=== PATIENT | female | born 1985 | race Caucasian/White ===

== ENCOUNTER 2021-07-18 12:16 | Outpatient (CLI) | payer OTHER, SELFPAY ==
[2021-07-23 08:45] LABS: HPV APTIMA, High Risk Negative (Negative)
== END 2021-07-18 23:59 | disposition short-term general hospital (02) ==
LOC: US 12:18
PROVIDERS: Visit Provider Obstetrics & Gynecology
DX: Z12.4 Encounter for screening for malignant neoplasm of cervix (principal)
CPT/HCPCS: 87624; 88175; G0145

== ENCOUNTER 2021-08-21 08:18 | Outpatient (CLI) | payer OTHER, SELFPAY ==
--- NOTE | 2021-08-21 08:21 | US_ITS ---
STUDY: ULTRASOUND OF THE FEMALE PELVIS - COMPLETE REASON FOR EXAM: Female, 35 years old. ADNX CYST ON PREV CT IN MAY - OUTSIDE FACILITY LMP: 07/27/2021. TECHNIQUE: Transabdominal and Transvaginal TECHNICAL QUALITY: Adequate. COMPARISON: None. FINDINGS: The uterus is anteverted and is in a midline position. The uterus measures 8.7 cm x 5.8 cm x 4.4 cm. Normal uterine cervix. The endometrium measures 1.1 mm in thickness, and is hyperechoic. There is no demonstrated endometrial mass. There is no demonstrated myometrial mass. I.U.D. - The patient does not have an I.U.D. The right ovary is visualized. The right ovary measures 2.8 cm x 2.4 cm x 2.8 cm. There is no right ovarian cyst or ovarian mass. There is no visualized right adnexal mass or complex lesion. There is normal arterial and normal venous vascularity. The left ovary is visualized. The left ovary measures 3.8 cm x 2.5 cm x 1.6 cm. There is no left ovarian cyst or ovarian mass. There is no visualized left adnexal mass or complex lesion. There is normal arterial and normal venous vascularity. There is no fluid in the cul-de-sac. The pre void volume of the bladder was 448 ml. US/Pelvic (Non ) IMPRESSION: Normal female pelvis. Electronically Signed: Rubén Gregory MD at 15:16 EST ,
--- NOTE | 2021-08-21 08:21 | US_ITS ---
STUDY: ULTRASOUND OF THE FEMALE PELVIS - COMPLETE REASON FOR EXAM: Female, 35 years old. ADNX CYST ON PREV CT IN MAY - OUTSIDE FACILITY LMP: 07/27/2021. TECHNIQUE: Transabdominal and Transvaginal TECHNICAL QUALITY: Adequate. COMPARISON: None. FINDINGS: The uterus is anteverted and is in a midline position. The uterus measures 8.7 cm x 5.8 cm x 4.4 cm. Normal uterine cervix. The endometrium measures 1.1 mm in thickness, and is hyperechoic. There is no demonstrated endometrial mass. There is no demonstrated myometrial mass. I.U.D. - The patient does not have an I.U.D. The right ovary is visualized. The right ovary measures 2.8 cm x 2.4 cm x 2.8 cm. There is no right ovarian cyst or ovarian mass. There is no visualized right adnexal mass or complex lesion. There is normal arterial and normal venous vascularity. The left ovary is visualized. The left ovary measures 3.8 cm x 2.5 cm x 1.6 cm. There is no left ovarian cyst or ovarian mass. There is no visualized left adnexal mass or complex lesion. There is normal arterial and normal venous vascularity. There is no fluid in the cul-de-sac. The pre void volume of the bladder was 448 ml. US/Transvaginal Non- IMPRESSION: Normal female pelvis. Electronically Signed: Rubén Gregory MD at 15:16 EST ,
== END 2021-08-21 23:59 | disposition home or self-care (01) ==
LOC: US 08:19
PROVIDERS: Referring Provider Obstetrics & Gynecology; Visit Provider Obstetrics & Gynecology
DX: N94.9 Unspecified condition associated with female genital organs and menstrual cycle (principal)
CPT/HCPCS: 76830; 76856

== ENCOUNTER → 2022-07-23 | Outpatient (CLI) | payer OTHER, SELFPAY ==
[2022-07-23 13:56] LABS: Absolute Lymphocyte Count 1.74 X10^3/uL (0.83-4.51); Absolute Neutrophil Count 3.1 X10^3/uL (2.0-7.7); Basophil# 0.04 X10^3/uL; Basophil% 0.7 % (0-1); Eosinophil# 0.05 X10^3/uL; Eosinophils% 0.9 % (0-5); Hematocrit 40.8 % (37-47); Lymphocyte # 1.74 X10^3/ul (0.83-4.51); Lymphocyte % 32.3 % (19-41); Mean Corp Hgb Conc 31.9 g/dL (32-36); Mean Corpuscular Hgb 28.9 pg (27.0-32.0); Mean Corpuscular Volume 90.7 fL (81-99); Mean Platelet Vol. 9.5 fl (6.2-12.0); Monocyte# 0.45 X10^3/uL; Monocyte% 8.4 % (0-10); NRBC Flagged by Analyzer 0 % (0-5); Neutrophil # 3.09 X10^3/uL (2.7-7.7); Neutrophil % 57.5 % (47-70); Platelet Count 295 K/mm3 (150-450); RBC Distribution Width CV 12.1 % (11.6-14.6); RBC Distribution Width SD 40.5 fl (35.1-43.9); White Blood Count 5.4 K/mm3 (4.4-11.0)
[2022-07-23 14:25] LABS: Thyroid Stim Hormone (TSH) 3.78 uIU/mL (0.358-3.74)
== END | disposition home or self-care (01) ==
LOC: PAVLAB 13:33
PROVIDERS: Referring Provider Obstetrics & Gynecology; Visit Provider Obstetrics & Gynecology
DX: N93.0 Postcoital and contact bleeding (principal); Z13.29 Encounter for screening for other suspected endocrine disorder
CPT/HCPCS: 36415; 84443; 85025

== ENCOUNTER → 2022-08-03 | Outpatient (CLI) | payer OTHER, SELFPAY ==
--- NOTE | 2022-08-03 13:41 | US_ITS ---
EXAM: US pelvis. HISTORY: Abnormal bleeding. COMPARISON: Pelvic ultrasound August 21, 2021. LIMITATIONS: None. FINDINGS: The uterus measures 9.6 x 5.6 x 4.1 cm. Endometrial thickness is normal measuring 8 mm with a trilaminar appearance. No hypervascularity at the endometrium. A 1.8 x 1.5 cm mildly complex cyst or dominant follicle is in the right ovary. Flow is demonstrated to the ovaries bilaterally. No gross free pelvic fluid. CONCLUSION: Normal endometrial thickness. 1.8 x 1.5 cm right ovarian dominant follicle or cyst. Electronically Signed: Dave Galvez MD at 22:42 EST , US/Transvaginal Non- IMPRESSION: undefined
--- NOTE | 2022-08-03 13:41 | US_ITS ---
EXAM: US pelvis. HISTORY: Abnormal bleeding. COMPARISON: Pelvic ultrasound August 21, 2021. LIMITATIONS: None. FINDINGS: The uterus measures 9.6 x 5.6 x 4.1 cm. Endometrial thickness is normal measuring 8 mm with a trilaminar appearance. No hypervascularity at the endometrium. A 1.8 x 1.5 cm mildly complex cyst or dominant follicle is in the right ovary. Flow is demonstrated to the ovaries bilaterally. No gross free pelvic fluid. CONCLUSION: Normal endometrial thickness. 1.8 x 1.5 cm right ovarian dominant follicle or cyst. Electronically Signed: Dave Galvez MD at 22:42 EST , US/Pelvic (Non ) IMPRESSION: undefined
== END | disposition home or self-care (01) ==
LOC: OPUS 13:39
PROVIDERS: PCP Nurse Practitioner Family; Referring Provider Obstetrics & Gynecology; Visit Provider Obstetrics & Gynecology
DX: N93.0 Postcoital and contact bleeding (principal)
CPT/HCPCS: 76830; 76856

== ENCOUNTER → 2022-08-13 | Outpatient (CLI) | payer OTHER, SELFPAY ==
--- NOTE | 2022-08-13 15:00 | EMB_PTH ---
PATIENT: TRISTON JARAMILLO LOC: [facility] U#:[id number] AGE/SX: 36/F ROOM: RE08/13/[address]: Dr. Rose Castellon DO : 1985 BED: DIS: 08/13/2022 SPEC #: [id number] RECD: 08/14/22 08:08 STATUS: BRIE MESERET #: [id number] VINEET: 08/13/22 15:[address]: Rose Castellon DEPT: SURGICAL PATHOLOGY RECD BY: Arelis Wright ENTERED: 08/14/22 08:08 SP TYPE: ENDOM BX/C GO DR: Lisa Main, COLLECTOR OF PORT-C Tissues: Endometrium, NOS Procedures: Surgery Specimen Level IV HEADER OPERATION: Endometrial biopsy PRE-OP DIAGNOSIS: Abnormal uterine bleeding TISSUE SUBMITTED: Endometrial lining MICROSCOPIC DIAGNOSIS Endometrium, biopsy: Secretory endometrium. AM:keren 08/17/2022 MICROSCOPIC DESCRIPTION Slides are reviewed. GROSS DESCRIPTION Received is one container labeled with the patient's name and not further designated. The specimen consists of multiple irregular fragments of light hernandez soft tissue that in aggregate measure 2 x 1.5 x 0.1 cm. The specimen is totally submitted in one cassette. / AM:keren 08/14/2022 TC:5 CPT: 20615
== END | disposition home or self-care (01) ==
LOC: LABSPEC 16:59
PROVIDERS: PCP Nurse Practitioner Family; Visit Provider Obstetrics & Gynecology
DX: N93.9 Abnormal uterine and vaginal bleeding, unspecified (principal)
CPT/HCPCS: 88305

== ENCOUNTER → 2023-10-08 | Outpatient (CLI) | payer OTHER, SELFPAY ==
[2023-10-15 16:52] LABS: HPV Reflexed? NOT INDICATED
== END | disposition home or self-care (01) ==
LOC: LABSPEC 16:59
PROVIDERS: Referring Provider Obstetrics & Gynecology; Visit Provider Obstetrics & Gynecology
DX: Z12.4 Encounter for screening for malignant neoplasm of cervix (principal)
CPT/HCPCS: 88175; G0145

== ENCOUNTER → 2024-01-28 | Outpatient (CLI) | payer OTHER, SELFPAY ==
--- NOTE | 2024-01-28 14:33 | BI_ITS ---
MAMMOGRAPHY - BILATERAL DIAGNOSTIC REASON FOR EXAM: Female, 38 years old. 2 month history of a right axillary nodule. PERTINENT HISTORY: Aunt with breast cancer. TECHNIQUE: Digital bilateral breast [place] (3D mammographic acquisition) in the CC and MLO projections. 2-D mediolateral oblique (MLO) and craniocaudad (CC) views of both breasts were obtained. CAD: Full Field Digital Mammography with Computer Added Detection was performed. COMPARISON: None. Baseline examination. FINDINGS: Breast Composition: The breasts are extremely dense, which lowers the sensitivity of mammography. The palpable lump corresponds to a 1.8 cm x 1.4 cm nodular density in the right axilla. Correlation with ultrasound recommended. No other significant abnormalities are identified. BI/DIAG MAMM W/CAD, BILAT IMPRESSION: Nodular density in the right axilla as described. Correlation with ultrasound recommended. ASSESSMENT CATEGORY: BIRADS Category 0: Incomplete. Need additional imaging evaluation. A letter regarding these results will be sent to the patient by the facility within 30 days. Approximately 10% of breast cancers are not detected by mammography. A normal mammogram should not delay biopsy of a clinically suspicious abnormality. Electronically Signed: Rubén Gregory MD at 15:22 EDT ,
--- NOTE | 2024-01-28 15:13 | US_ITS ---
STUDY: ULTRASOUND BREAST - RIGHT REASON FOR EXAM: Female, 38 years old. Palpable lump in the right axilla. TECHNIQUE: Axial and longitudinal images of the RIGHT breast were performed with a high resolution ultrasound transducer. # OF IMAGES: 28 COMPARISON: Comparison is made with prior mammogram done earlier today. FINDINGS: RIGHT Breast: The right axilla was examined with ultrasound. The palpable lump corresponds to accessory breast tissue in the superior axilla. This measures 3.5 cm x 1.7 cm x 0.8 cm. Incidental note is made of subcentimeter benign-appearing axillary lymph nodes. US/Breast Limited Unilateral IMPRESSION: The palpable lump in the right axilla corresponds to accessory breast tissue. Incidental note is made of small subcentimeter axillary lymph nodes. ASSESSMENT CATEGORY: BIRADS Category 2: Benign. A letter regarding these results will be sent to the patient by the facility within 30 days. Electronically Signed: Rubén Gregory MD at 9:59 EDT ,
== END | disposition home or self-care (01) ==
LOC: OPBI 14:31
PROVIDERS: PCP Nurse Practitioner Family; Referring Provider Nurse Practitioner Family; Visit Provider Nurse Practitioner Family
DX: N63.31 Unspecified lump in axillary tail of the right breast (principal)
CPT/HCPCS: 76642; 77062; 77066; G0279

== ENCOUNTER → 2024-06-22 | Outpatient (CLI) | payer OTHER, SELFPAY ==
--- NOTE | 2024-06-22 17:44 | CT_ITS ---
STUDY: CT ABDOMEN AND PELVIS WITHOUT CONTRAST REASON FOR EXAM: Female, 38 years old. Blood in urine. Left-sided cramps. RADIATION DOSAGE (If Supplied By Facility): CTDIvol = ( 6.04 ) mGy, DLP = ( 255.17 ) mGycm TECHNIQUE: Transaxial images were obtained from the dome of the diaphragm to the symphysis pubis without oral contrast, and without intravenous contrast. Sagittal and coronal images were reconstructed. Individualized dose optimization techniques were used for this CT. COMPARISON: None. FINDINGS: The visualized lung bases are unremarkable. The visualized portions of the heart are within normal limits. Normal liver. Normal gallbladder and extrahepatic biliary system. Normal spleen. Normal pancreas. Normal bilateral adrenal glands. 6 mm nonobstructive calculus in the lower pole calyx of the right kidney. Findings suggestive of a 5.3 mm calculus in the midportion of the right ureter. Normal left kidney. Normal visualized stomach. Normal small intestine. Normal colon. The appendix is visualized and appears normal. Normal abdominal aorta. Normal inferior vena cava. Normal retroperitoneum. Normal urinary bladder. Normal abdominal wall. Normal osseous structures. CT/Abdomen/Pelvis without Cont IMPRESSION: Findings suggestive of a 5.3 mm calculus in the midportion of the right ureter. Nonobstructive right intrarenal calculus. Electronically Signed: Rubén Gregory MD at 15:21 EST ,
== END | disposition home or self-care (01) ==
LOC: CT 17:41
PROVIDERS: PCP Nurse Practitioner Family; Referring Provider Internal Medicine; Visit Provider Internal Medicine
DX: R31.9 Hematuria, unspecified (principal)
CPT/HCPCS: 74176

== ENCOUNTER → 2024-08-01 | Outpatient (CLI) | payer SELFPAY ==
--- NOTE | 2024-08-01 | CYSPIN_PTH ---
PATIENT: TRISTON JARAMILLO LOC: [facility] U#:[id number] AGE/SX: 38/F ROOM: RE08/01/[address]: Dr. Jaleesa Hyman MD : 1985 BED: DIS: 08/01/2024 SPEC #: [id number] RECD: 08/01/24 15:00 STATUS: BRIE CARL #: [id number] VINEET: 08/01/24 00:[address]: Jaleesa Hyman DEPT: CYTOLOGY RECD BY: Gracy Molina Tissues: Urine Procedures: Pap Stain (control) Special Stain Group II Cytospin Fluid HEADER OPERATION: Not noted PRE-OP DIAGNOSIS: Gross hematuria TISSUE SUBMITTED: Urine for cytology DIAGNOSIS CYTOLOGY Urine (non-specified type), cytology: Rare clusters of atypical urothelial cells in a background of light acute inflammation. NIKHIL, 08/04/24 CYTOLOGY STUDY Slides are reviewed. CYTOLOGY GROSS Received is 30 ml of yellow-cloudy fluid labeled with the patient's name and and designated per the requisition as urine. Submitted for cytology preparation. Mr. 08/02/2024 TC:4 CPT: 90108
[2024-08-01 18:05] LABS: Cytology, Body Fluid / CSF SEE PATHOLOGY REPORT
== END | disposition home or self-care (01) ==
LOC: LABSPEC 17:56
PROVIDERS: Visit Provider Urology
DX: R31.0 Gross hematuria (principal)
CPT/HCPCS: 88108; 88313

== ENCOUNTER → 2024-08-11 | Outpatient (CLI) | payer OTHER, SELFPAY ==
--- NOTE | 2024-08-11 16:07 | CT_ITS ---
EXAM: ABDOMEN/PELVIS WITHOUT CONT CLINICAL HISTORY: Hematuria. Known kidney stones. No prior surgery. COMPARISON: 06/22/2024. TECHNIQUE: Helical CT images of the abdomen and pelvis were performed utilizing routine protocol without intravenous contrast material. Multiplanar reformations were obtained. Dose reduction techniques were used including intermediate exposure control (AEC),iterative reconstruction technique, and/or mA and/or KV dose adjustments based on patient's size. FINDINGS: The lung bases are clear. No obvious acute abnormality of the liver, spleen, pancreas, or adrenal glands. The gallbladder is contracted. 5 mm nonobstructing right lower pole renal calculus. No hydronephrosis. 5 mm calcification noted in the region of the mid left ureter similar to the prior study. No urinary bladder wall thickening. No acute bowel obstruction. No pneumoperitoneum. No CT evidence of acute colonic diverticulitis. The appendix is normal in caliber and contains an appendicolith. No periappendiceal inflammatory changes noted. No lymphadenopathy. No significant free fluid in the abdomen and pelvis. No CT evidence of acute osseous abnormality. CT/Abdomen/Pelvis without Cont IMPRESSION: No significant interval change from the prior study. 5 mm nonobstructing right lower pole renal calculus. No hydronephrosis. 5 mm calcification noted in the region of the mid left ureter similar to the prio r study which may represent a ureteral calculus or phlebolith. Reading Location: [id number]
--- NOTE | 2024-08-11 16:19 | MRI_ITS ---
PROCEDURE: MRI of the chest without and with intravenous contrast. REASON FOR EXAM: Right axillary mass. History of accessory breast tissue. None available COMPARISON: None. TECHNIQUE: Multiplanar, multisequence MRI images of the right side of the chest were obtained without and with IV gadolinium contrast. 9 cc of Clariscan IV contrast was administered. FINDINGS: The included osseous structures of the upper right thorax are unremarkable. There is a region of interest marker at the skin surface lateral right axilla. No grossly enlarged right axillary or supraclavicular lymph nodes. Included proximal right humerus is intact. At the superior margin of the right hilum, on image 5 of the axial T2 propeller sequence and image 3 of the axial T1 fat saturated sequence, there is a 11 mm possible nodule versus artifact. The remaining included right lung is clear. Deep to the region of interest marker of the right axilla, there is some curvilinear soft tissue, which appears to be contiguous with a tail of the right breast. This appears to demonstrate some heterogeneous enhancement, and is favored to represent some axillary breast tissue. MRI/Chest W/WO Contrast IMPRESSION: Some heterogeneously enhancing curvilinear tissue in the subcutaneous fat of th e right axilla, which appears to be contiguous with the tail of the right breast, favored to represent some accessory breast t issue. If there is patient anxiety or clinical concern, image guided or excisional biopsy may be considered for definitive his tologic diagnosis. Close clinical follow-up is recommended. 1.1 cm possible nodule versus artifact at the superior margin of the right hilu m, most conspicuous on the axial T2 sequence. Suggest short-term follow-up contrast-enhanced chest CT for clarification. Reading Location: [facility]
== END | disposition home or self-care (01) ==
LOC: CT 15:41 → MRI 15:49
PROVIDERS: PCP Nurse Practitioner Family; Referring Provider Plastic Surgery; Visit Provider Plastic Surgery
DX: N20.2 Calculus of kidney with calculus of ureter (principal)
CPT/HCPCS: 71552; 74176; A9575

== ENCOUNTER 2024-09-14 05:59 | Day surgery (SDC) | payer OTHER, SELFPAY ==
[2024-09-14] VITALS (9 sets, daily range): BP systolic 98–124; BP diastolic 64–82; PULSE 78–99; RESP 14–18; TEMP 36.4–37.3; O2SAT 98–100; BMI 16.4
[2024-09-14 06:38] LABS: Internal QC Validated? YES +Cl - CLEAR BKGD; Pregnancy, Urine Negative Negative
--- NOTE | 2024-09-14 07:27 | PCM.PRE.AN2 ---
ASA Classification* ASA Classification ASA Classification: 1 Assessment & Plan Anesthesia* Anesthesia Assessment Anesthesia Assessment: Discussed sedation and/or anesthesia options, risks, benefits, and alternatives with patient/parents/legal guardian/POA. Questions invited. The patient/parents/legal guardian/POA seems to understand and agrees to proceed with anesthesia plan. Reviewed the physical assessment, medical history, allergy history and patient home medications list prior to surgery/procedure/anesthetic and documented any changes. Performed airway and anesthesia risk assessments. Anesthesia Type Anesthesia Type: General History Source History Obtained from:: Patient and Chart Anesthesia Focused Assessment* Temperature: 99.2 F Pulse Rate: 99 Blood Pressure: 124/82 Respiratory Rate: 16 Pulse Ox: 100 Oxygen Delivery Method: Room Air Airway Assessment Mouth opens: >3 cm Mallampati Score: II Teeth Condition: Intact Neck Range of motion (ROM): Full ROM Focused Labs Anesthesia Preop lab: CBC WBC 5.4 K/mm3 (4.4-11.0) 07/23/22 13:38 07/23/22 RBC 4.50 M/mm3 (4.2-5.4) 07/23/22 13:38 07/23/22 Hgb 13.0 g/dL (12.0-15.0) 07/23/22 13:38 07/23/22 Hct 40.8 % (37-47) 07/23/22 13:38 07/23/22 Plt Count 295 K/mm3 (150-450) 07/23/22 13:38 07/23/22 CHEMISTRY Glucose 85 mg/dL (70-110) 11/25/13 10:31 11/25/13 TSH 3.78 uIU/mL (0.358-3.74) H 07/23/22 13:38 07/23/22 COAG Urine Test Negative Negative 09/14/24 06:00 09/14/24 Tst Clinic Negative 08/13/22 15:00 08/13/22 Pre-Assessment Diagnosis/Proposed Procedure Planned Operative Procedure(s): (R) Cysto,Ureteroscopy,Dil,Basket Ext,Stent Anesthesia History 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 When Was Last Pacemaker Check QUESTION #4 FULL TEXT: You/Your Family Experience fever (hyperthermia) with Anesthesia Last Oral Intake Last Oral intake: Last Oral Intake NPO since 00:00 09/14/24 06:27 Meds taken in AM with sips of No 09/14/24 06:27 water? 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 Female Yes 08/31/24 13:12 HX of Motion Sickness No 08/31/24 13:12 HX of N/V After Surgery No 08/31/24 13:12 Non-Smoker Yes 08/31/24 13:12 Duration of Surgery greater No 08/31/24 13:12 than 60 minutes Number of Risk Factors 2 08/31/24 13:12 PONV Score Moderate Risk 08/31/24 13:12 Height & Weight Height & Weight: Anesthesia: Height & Weight Height 5 ft 5.5 in 09/14/24 06:27 Weight: 45.4 kg 09/14/24 06:27 Body Mass Index (BMI) 16.4 09/14/24 06:27 Respiratory Assessment Respiratory Assessment - electric mule driver: Respiratory Tract Infection Hx - electric mule driver Hx Respiratory Tract Infection No 08/31/24 13:12 STOP Sleep Apnea STOP Sleep Apnea - electric mule driver: STOP Sleep Apnea - electric mule driver Hx Hypertension No 08/31/24 13:12 Hx Sleep Apnea No 08/31/24 13:12 CPAP BIPAP Do you snore loudly (louder No 08/31/24 13:12 than talking or can be heard Do you often feel tired/ No 08/31/24 13:12 fatigued/ sleepy during daytime? Has anyone observed you stop No 08/31/24 13:12 breathing during sleep? STOP Results Negative 08/31/24 13:12 QUESTION #5 FULL TEXT : Do you snore loudly (louder than talking or can be heard through closed doors)? 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 Specify any problems Hx of Preganancy in last 3 N/A 08/31/24 13:12 Months Nurse Filling Out Transfusion NBUCHER 08/31/24 13:12 & Questions: Date: 08/31/24 08/31/24 13:12 Time: 13:13 08/31/24 13:12 Patient unable to answer at this time (ie. confused, unrespo /Reproduction History /Reproductive History - electric mule driver: /Reproductive Hx- electric mule driver Hx Now No 08/31/24 13:12 Gestational Age (in weeks): EDC: Hx Hx Para Hx Section SAB No 08/31/24 13:12 Active Medications Active Medications: Current Medications Generic Name Dose Route Start Last Admin Trade Name Freq PRN Reason Stop Dose Admin Cefazolin Sodium 2 gm/ N/A 20 mls @ 400 mls/hr 09/14/24 07:30 IV 09/14/24 07:32 PREOP ONE Sodium Chloride 1,000 mls @ 15 mls/hr 09/14/24 06:10 IV 09/19/24 19:29 .Q48H [facility] Protocol PFSH Medical History Thyroid disease Low iron Syncope Non-smoker History of kidney stones History of gestational diabetes History of breast lump History of seasonal allergies Home Medications ?Medication ?Instructions ?Recorded ?Last Taken ?Type multivitamin 1 tab PO DAILY 07/18/21 Unknown History Allergy/AdvReac Type Severity Reaction Status Date / Time No Known Allergies Allergy Verified 09/14/24 06:27 Family History (System 08/14/24 @ 06:43 by Jaida Rothman) Father Hypertension Mother Kidney disease Daughter Cancer T-cell Leukemia- diagnosis age 8 Surgical History History of wisdom tooth extraction Social History (System 08/14/24 @ 06:43 by Jaida Rothman) Smoking Status: Never smoker alcohol intake: never substance use type: does not use caffeine: Yes what type of physical activity do you participate in: none additional social history: -Humberto denies vaping, denies marijuana, denies edibles, denies aspirin, denies ibuprofen Review of Systems (Anesthesia) ROS Narrative System reviewed and no additional complaints, except as documented. Physical Exam Const alert, oriented x3 and average body habitus Resp normal respiratory effort, normal air movement and clear to auscultation bilaterally Cardio regular rate, regular rhythm, no murmurs and diaphoretic
[2024-09-14] MEDS: Cefazolin 2 GM in Syringe IV (07:39)
--- NOTE | 2024-09-14 08:20 | EX.PCM.DISCH ---
Discharge Instructions Diet Discharge Diet: No restrictions Activity Discharge Activity: Return to Normal Activity May resume sexual activity in: No Restrictions Dressing / Incision Call your doctor if you observe: Fever of 101 or Higher, Inability to urinate and Inability to have a bowel movement Follow Up Care Please Follow Up With: Jaleesa Hyman MD When: The office will call to make arrangements for the next procedure. Test Results: Test results from this visit will be discussed in further detail at your follow-up appointment, if applicable. Discharge Plan Admission Attending Provider: Jaleesa Hyman Primary Care Provider: Lisa Main Instructions Print Language: [place] Discharge Orders/Prescriptions Prescriptions: New cephalexin 250 mg/5 mL suspension for reconstitution 500 mg PO BID 3 Days Qty: 60 0RF phenazopyridine 200 mg tablet 200 mg PO TID PRN (Reason: pain) Qty: 30 3RF oxycodone-acetaminophen 5-325 mg tablet 1 tab PO Q8H PRN (Reason: pain) 3 Days Qty: 20 0RF ondansetron 4 mg tablet,disintegrating 4 mg PO Q8H PRN (Reason: nausea and vomiting) Qty: 20 0RF Continued multivitamin Tablet 1 tab PO DAILY Referrals / Follow Up: Lisa Main, EC[facility] DOCTOR-C [Primary Care Provider] - Disposition Disposition (needs filled in before D/C Order can be placed): Home, Self Care
--- NOTE | 2024-09-14 08:24 | OP.PCM_ITS ---
Operative Report (Standard) Operative Information Date of Procedure: 09/14/24 Pre-Operative Diagnosis: Right ureteral calculus Post-Operative Diagnosis: Same Surgery/Procedure Performed: Cystoscopy, right ureteroscopy, right ureteral stent insertion collection systems modeler: No Type of Anesthesia: General RN Documented Start/Stop Times: Operation Date: 09/14/24 07:30 Case Time Into Pre-Op 09/14/24 06:05 Out of Pre-Op 09/14/24 07:38 Anesthesia Start 09/14/24 07:39 Into Room 09/14/24 07:39 Procedure Start 09/14/24 07:55 Procedure End 09/14/24 08:12 Anesthesia End 09/14/24 08:24 Out of Room 09/14/24 08:24 Procedure Start Time: 07:55 Procedure Stop Time: 08:12 Select all DRAINS/GRAFTS/IMPLANTS that apply: Drains Drain details: 6 Estonian by 26 cm JJ stent Estimated Blood Loss: <5cc Specimen collected: No Description of surgery: The patient is a 38-year-old female with a right ureteral calculus who presents for surgical intervention. Informed consent was obtained. She was taken to the operating room and placed on the operating room table. Anesthesia monitored the head, neck, airway, IV access and vital signs throughout the case. Once anesthesia was appropriately ministered, she was placed into dorsolithotomy position was prepped and draped in usual sterile fashion. The cystoscope was inserted through the urethra under direct visualization into the urinary bladder. The mucosa was visualized in its entirety revealing no evidence of mass, erythema, ulceration or foreign body. The right ureteral orifice was gently cannulated with a 0.035 Glidewire. At this time the flexible ureteroscope was inserted alongside the wire into the distal right ureter. Access was obtained distally and the scope could not advance secondary to the narrow diameter of the ureter. A 0.025 Glidewire was then utilized and access was still unable to be achieved. The decision was made to place a ureteral stent for dilation of the ureter and to return to the surgery in 2 weeks. The indwelling 0.035 Glidewire was utilized for placement of a 6 Estonian 26 cm JJ stent with good positioning in the right kidney as well as the urinary bladder. The bladder was then emptied and the patient was awakened and taken to the recovery room in good condition. There were no complications during this procedure. Surgical Findings: Narrow distal ureter, unable to gain access to the stone Complications Complications: No Admit VTE Documentation VTE Present on Admission: Yes VTE Mechan Device Prophylaxis: SCD's VTE Pharm Prophylaxis ordered?: No Reason prophylaxis not ordered: Treatment Not Indicated
--- NOTE | 2024-09-14 08:31 | PCM.POST.ANE ---
Anesthesia: Postop Eval I Current Vital Signs Temperature: 97.5 F Pulse Rate: 99 Blood Pressure: 100/71 Respiratory Rate: 16 Pulse Ox: 99 Assessment Airway patent: Yes Spontaneous unlabored respirations: Yes nausea: No Vomiting: No Anesthesia Complication: No Fluid Hydration Crystalloid volume administer (ml): 900 Total IV fluid infused: 900 Progress Note Anesthesia document: Postop Eval 1 completed: Yes
--- NOTE | 2024-09-14 12:32 | POSTOPAN2_ITS ---
Anesthesia Postop Eval I Sum Postop Eval Completion status Anesthesia document: Postop Eval 1 completed: Yes Anesthesia Postop Eval I Summary Anesthesia Postop Eval I Summary: Anesthesia Postop Eval I: Assessment Summary Airway patent Yes 09/14/24 08:31 LABORER HOISTING.[email or web address] Spontaneous unlabored Yes 09/14/24 08:31 LABORER HOISTING.TNES respirations Mental status nausea No 09/14/24 08:31 LABORER HOISTING.TNES Vomiting No 09/14/24 08:31 LABORER HOISTING.TNES Anesthesia Postop Eval I: Fluid Summary Crystalloid volume administer 900 09/14/24 08:31 LABORER HOISTING.TNES (ml) Colloids volume administered ( ml) Blood Product volume administered (ml) Total IV fluid infused 900 09/14/24 08:31 LABORER HOISTING.TNES Anesthesia Postop Eval I: Summary Notes Anesthesia Complication No 09/14/24 08:31 LABORER HOISTING.TNES Anesthesia Complication Comment: Post-operative progress note Anesthesia: Postop Eval II Evaluation Mental status: Awake Pain Level: 0 nausea: No Vomiting: No Complications Anesthesia Complication: No
--- NOTE | 2024-09-14 12:32 | PCM.POSTANE2 ---
Anesthesia Postop Eval I Sum Postop Eval Completion status Anesthesia document: Postop Eval 1 completed: Yes Anesthesia Postop Eval I Summary Anesthesia Postop Eval I Summary: Anesthesia Postop Eval I: Assessment Summary Airway patent Yes 09/14/24 08:31 BOILER PLANT WORKER.TNES Spontaneous unlabored Yes 09/14/24 08:31 BOILER PLANT WORKER.TNES respirations Mental status nausea No 09/14/24 08:31 BOILER PLANT WORKER.TNES Vomiting No 09/14/24 08:31 BOILER PLANT WORKER.TNES Anesthesia Postop Eval I: Fluid Summary Crystalloid volume administer 900 09/14/24 08:31 BOILER PLANT WORKER.TNES (ml) Colloids volume administered ( ml) Blood Product volume administered (ml) Total IV fluid infused 900 09/14/24 08:31 BOILER PLANT WORKER.TNES Anesthesia Postop Eval I: Summary Notes Anesthesia Complication No 09/14/24 08:31 BOILER PLANT WORKER.TNES Anesthesia Complication Comment: Post-operative progress note Anesthesia: Postop Eval II Evaluation Mental status: Awake Pain Level: 0 nausea: No Vomiting: No Complications Anesthesia Complication: No
== END 2024-09-14 10:00 | disposition home or self-care (01) ==
LOC: SDC 06:03 → AC 06:04
PROVIDERS: PCP Nurse Practitioner Family; Referring Provider Urology; Visit Provider Urology
PROC: (CPT 52332; principal; 2024-09-14 07:20)
DX: N20.1 Calculus of ureter (principal); R31.0 Gross hematuria; N13.5 Crossing vessel and stricture of ureter without hydronephrosis
CPT/HCPCS: 52332; 00910; 76000; 81025; C1769; C2617; J2405

== ENCOUNTER 2024-09-22 09:56 | Day surgery (SDC) | payer OTHER, SELFPAY ==
[2024-09-22] VITALS (11 sets, daily range): BP systolic 104–113; BP diastolic 68–81; PULSE 80–96; RESP 14–16; TEMP 36.2–37; O2SAT 98–100; BMI 16.9
--- NOTE | 2024-09-22 | CALC_PTH ---
PATIENT: TRISTON GANN LOC: [facility] [place] U#:[id number] AGE/SX: 38/F ROOM: RE09/22/[address]: Dr. Jaleesa Hyman MD : 1985 BED: DIS: 09/22/2024 SPEC #: [id number] RECD: 09/25/24 10:43 STATUS: BRIE MESERTE #: [id number] VINEET: 09/22/24 00:[address]: Jaleesa Hyman DEPT: SURGICAL PATHOLOGY RECD BY: Carlos Tovar ENTERED: 09/25/24 10:43 SP TYPE: Calculi OTHR DR: Lisa Main, LABORATORY COORDINATOR-C Tissues: A - CALCULI Procedures: Surgery Specimen Level I HEADER OPERATION: Cystoscopy, right urteroscopy laser lithotripsy, stone basket PRE-OP DIAGNOSIS: Right renal and ureteric calculus, hematuria TISSUE SUBMITTED: A- Calculi GROSS DIAGNOSIS Right ureteral calculus, removed: * Calculus confirmed (gross examination only). * Chemical analysis is PENDING and will be reported separately. GROSS DESCRIPTION Received fresh labeled, Triston Gann, and designated right ureteral calculus, is a 0.4 x 0.3 x 0.2 cm red-brown, ragged, ovoid calculus. The calculus is for gross examination only and entirely submitted for chemical analysis. YANETH 09/25/2024 CPT:24997
[2024-09-22 10:27] LABS: Internal QC Validated? YES +Cl - CLEAR BKGD; Pregnancy, Urine Negative Negative
[2024-09-22] MEDS: 0.9% Normal Saline (1000mL) 1,000 ML 15 ML IV (10:40)
--- NOTE | 2024-09-22 11:06 | PRE.ANES_ITS ---
ASA Classification* ASA Classification ASA Classification: 2 Assessment & Plan Anesthesia* Anesthesia Assessment Anesthesia Assessment: Discussed sedation and/or anesthesia options, risks, benefits, and alternatives with patient/parents/legal guardian/POA. Questions invited. The patient/parents/legal guardian/POA seems to understand and agrees to proceed with anesthesia plan. Reviewed the physical assessment, medical history, allergy history and patient home medications list prior to surgery/procedure/anesthetic and documented any changes. Performed airway and anesthesia risk assessments. Anesthesia Type Anesthesia Type: General History Source History Obtained from:: Patient, Chart and Parent/ Guardian Anesthesia Focused Assessment* Temperature: 98.6 F Pulse Rate: 86 Blood Pressure: 113/81 Respiratory Rate: 16 Pulse Ox: 100 Oxygen Delivery Method: Room Air Airway Assessment Mouth opens: >3 cm Mallampati Score: I Teeth Condition: Intact Neck Range of motion (ROM): Full ROM Focused Labs Anesthesia Preop lab: CBC WBC 5.4 K/mm3 (4.4-11.0) 07/23/22 13:38 07/23/22 RBC 4.50 M/mm3 (4.2-5.4) 07/23/22 13:38 07/23/22 Hgb 13.0 g/dL (12.0-15.0) 07/23/22 13:38 07/23/22 Hct 40.8 % (37-47) 07/23/22 13:38 07/23/22 Plt Count 295 K/mm3 (150-450) 07/23/22 13:38 07/23/22 CHEMISTRY Glucose 85 mg/dL (70-110) 11/25/13 10:31 11/25/13 TSH 3.78 uIU/mL (0.358-3.74) H 07/23/22 13:38 07/05 03/27 COAG Urine Test Negative Negative 09/22/24 10:05 09/22/24 Tst Clinic Negative 08/13/22 15:00 08/13/22 Pre-Assessment Diagnosis/Proposed Procedure Planned Operative Procedure(s): (R) Cysto, right ureteroscopy laser litho, stone basket extraction right stent change Anesthesia History 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 When Was Last Pacemaker Check QUESTION #4 FULL TEXT: You/Your Family Experience fever (hyperthermia) with Anesthesia Last Oral Intake Last Oral intake: Last Oral Intake NPO since 20:00 09/22/24 10:19 Meds taken in AM with sips of water? Meds patient instructed to take am of surgery PONV PONV - business objects developer: PONV - business objects developer Female Yes 09/18/24 10:55 HX of Motion Sickness Yes 09/18/24 10:55 HX of N/V After Surgery No 09/18/24 10:55 Non-Smoker Yes 09/18/24 10:55 Duration of Surgery greater No 09/18/24 10:55 than 60 minutes Number of Risk Factors 3 09/18/24 10:55 PONV Score Moderate Risk 09/18/24 10:55 Height & Weight Height & Weight: Anesthesia: Height & Weight Height 5 ft 5 in 09/22/24 10:19 Weight: 46 kg 09/22/24 10:19 Body Mass Index (BMI) 16.9 09/22/24 10:19 Respiratory Assessment Respiratory Assessment - business objects developer: Respiratory Tract Infection Hx - business objects developer Hx Respiratory Tract Infection No 09/18/24 10:55 STOP Sleep Apnea STOP Sleep Apnea - business objects developer: STOP Sleep Apnea - business objects developer Hx Hypertension No 09/18/24 10:55 Hx Sleep Apnea No 09/18/24 10:55 CPAP BIPAP Do you snore loudly (louder No 09/18/24 10:55 than talking or can be heard Do you often feel tired/ No 09/18/24 10:55 fatigued/ sleepy during daytime? Has anyone observed you stop No 09/18/24 10:55 breathing during sleep? STOP Results Negative 09/18/24 10:55 QUESTION #5 FULL TEXT : Do you snore loudly (louder than talking or can be heard through closed doors)? Tobacco Use History Tobacco Use History - business objects developer: Tobacco Use History - business objects developer Tobacco Use Smoking Status Never smoker 09/18/24 10:55 Hx Tobacco Use No 09/18/24 10:55 Years Smoking Packs Smoked per Day Smoking Cessation Date was within the last 15 years Hx Smoking Cessation Date Hx Smoking Cessation Counseling Hematologic Medial History Hematologic Hx - business objects developer: Hematologic Medical Hx - chalker soles Hx of Blood Transfusion No 09/18/24 10:55 Hx of Transfusion in last 3 No 09/18/24 10:55 Months Date of Last Transfusion (if within last 3 months) Ever experience any problems No 09/18/24 10:55 with transfusion(s)? Specify any problems Hx of Preganancy in last 3 No 09/18/24 10:55 Months Nurse Filling Out Transfusion JZOLLAD 09/18/24 10:55 & Questions: Date: 09/18/24 09/18/24 10:55 Time: 11:00 09/18/24 10:55 Patient unable to answer at this time (ie. confused, unrespo /Reproduction History /Reproductive History - business objects developer: /Reproductive Hx- business objects developer Hx Now No 09/18/24 10:55 Gestational Age (in weeks): EDC: Hx Hx Para Hx Section SAB No 09/18/24 10:55 Active Medications Active Medications: Current Medications Generic Name Dose Route Start Last Admin Trade Name Freq PRN Reason Stop Dose Admin Cefazolin Sodium 2 gm/ N/A 20 mls @ 400 mls/hr 09/22/24 11:30 IV 09/22/24 11:32 Q8 ONE Sodium Chloride 1,000 mls @ 15 mls/hr 09/22/24 10:10 09/22/24 10:40 IV 15 mls/hr .Q48H LUIS F Administration PFSH Medical History Thyroid disease Low iron Syncope Non-smoker History of kidney stones History of gestational diabetes History of breast lump History of seasonal allergies Home Medications ?Medication ?Instructions ?Recorded ?Last Taken ?Type ondansetron 4 mg disintegrating 4 mg PO Q8H PRN nausea and 09/14/24 Unknown Rx tablet vomiting #20 tabs phenazopyridine 200 mg tablet 200 mg PO TID PRN pain # 30 tabs 09/14/24 Unknown Rx Allergy/AdvReac Type Severity Reaction Status Date / Time No Known Allergies Allergy Verified 09/22/24 10:23 Family History (System 08/14/24 @ 06:43 by Jaida Rothman) Father Hypertension Mother Kidney disease Daughter Cancer T-cell Leukemia- diagnosis age 8 Surgical History History of wisdom tooth extraction Social History (System 08/14/24 @ 06:43 by Jaida Rothman) Smoking Status: Never smoker alcohol intake: never substance use type: does not use caffeine: Yes what type of physical activity do you participate in: none additional social history: -Humberto denies vaping, denies marijuana, denies edibles, denies aspirin, denies ibuprofen Review of Systems (Anesthesia) ROS Narrative System reviewed and no additional complaints, except as documented.
--- NOTE | 2024-09-22 11:41 | EX.PCM.DISCH ---
Discharge Instructions Diet Discharge Diet: No restrictions Activity Discharge Activity: Return to Normal Activity Dressing / Incision Call your doctor if you observe: Fever of 101 or Higher, Inability to urinate and Inability to have a bowel movement Follow Up Care Please Follow Up With: Jaleesa Hyman MD When: The office will call to make follow up arrangements. Test Results: Test results from this visit will be discussed in further detail at your follow-up appointment, if applicable. Discharge Plan Admission Attending Provider: Jaleesa Hyman Primary Care Provider: Lisa Main Instructions Print Language: Iraqi Discharge Orders/Prescriptions Prescriptions: New cephalexin 250 mg/5 mL suspension for reconstitution 500 mg PO BID 3 Days Qty: 60 0RF Continued phenazopyridine 200 mg tablet 200 mg PO TID PRN (Reason: pain) Qty: 30 3RF ondansetron 4 mg tablet,disintegrating 4 mg PO Q8H PRN (Reason: nausea and vomiting) Qty: 20 0RF Referrals / Follow Up: Lisa Main, PRINTED CIRCUIT BOARDS LAMINATOR-C [Primary Care Provider] - Disposition Disposition (needs filled in before D/C Order can be placed): Home, Self Care
--- NOTE | 2024-09-22 11:44 | PCM.OPRPT ---
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: No Type of Anesthesia: General RN Documented Start/Stop Times: Operation Date: 09/22/24 11:30 Case Time Into Pre-Op 09/22/24 10:06 Out of Pre-Op 09/22/24 11:39 Anesthesia Start 09/22/24 11:41 Into Room 09/22/24 11:41 Procedure Start 09/22/24 11:51 Procedure End 09/22/24 12:36 Anesthesia End 09/22/24 12:53 Out of Room 09/22/24 12:53 Into Recovery 09/22/24 12:56 Procedure Start Time: 11:51 Procedure Stop Time: 12:36 Select all DRAINS/GRAFTS/IMPLANTS that apply: Drains Drain details: 4.5 Swazi by 26 cm JJ stent string intact Estimated Blood Loss: <5cc Specimen collected: Yes Description of specimen(s) removed: Ureteral stone fragments Description of surgery: The patient is a 38-year-old female who presents for surgical intervention for a right ureteral stone. Informed consent was obtained. She was taken to the operating room and placed on the operating room table. Anesthesia monitored the head, neck, airway, IV access and vital signs throughout the case. Once anesthesia was appropriately administered, she was placed into dorsolithotomy position was prepped and draped in usual sterile fashion. The cystoscope was inserted through the urethra under direct visualization into the urinary bladder. Her indwelling stent was visualized and a 0.035 Glidewire was inserted alongside of it and advanced into the renal pelvis is seen on fluoroscopy. A second 0.035 Glidewire was then inserted. A semirigid ureteroscope was used for cannulation of the distal ureter and was able to advance into the mid ureter before the ureter narrowed and I was unable to advance it. This was removed without injury. The flexible ureteroscope was then inserted over one of the Glidewire's. A proximal ureteral calculus was identified and an area of edematous ureter. The flexible ureteroscope was advanced all the way into the kidney. I was unable to visualize every calyx directly due to torque on the scope however there were no lesions identified and no stones were seen. Using the thulium laser, her ureteral calculus was broken into pieces and a stone basket was used for extraction. There was significant edema of the ureter at the end of this, likely made more apparent secondary to the narrowness of her ureter. The 0.035 Glidewire was then utilized for placement of a 4.5 Swazi by 24 cm JJ stent with good positioning in the renal pelvis as well as the urinary bladder. Surgical Findings: 4.5 Swazi by 24 cm JJ stent, edema of the ureter without injury, stone submitted for evaluation Complications Complications: No Admit VTE Documentation VTE Present on Admission: Yes VTE Mechan Device Prophylaxis: SCD's VTE Pharm Prophylaxis ordered?: No Reason prophylaxis not ordered: Treatment Not Indicated
[2024-09-22] MEDS: Cefazolin 2 GM in Syringe IV (11:45)
--- NOTE | 2024-09-22 13:02 | PCM.POST.ANE ---
Anesthesia: Postop Eval I Current Vital Signs Temperature: 97.2 F Pulse Rate: 94 Blood Pressure: 109/70 Respiratory Rate: 16 Pulse Ox: 100 Oxygen Delivery Method: Simple Mask Oxygen Flow Rate (L/min): 6 Assessment Airway patent: Yes Spontaneous unlabored respirations: Yes Mental status: Awake and Calm nausea: No Vomiting: No Anesthesia Complication: No Fluid Hydration Crystalloid volume administer (ml): 1,300 Total IV fluid infused: 1,300 Progress Note Anesthesia document: Postop Eval 1 completed: Yes
--- NOTE | 2024-09-22 14:05 | POSTOPAN2_ITS ---
Anesthesia Postop Eval I Sum Postop Eval Completion status Anesthesia document: Postop Eval 1 completed: Yes Anesthesia Postop Eval I Summary Anesthesia Postop Eval I Summary: Anesthesia Postop Eval I: Assessment Summary Airway patent Yes 09/22/24 13:02 DISTILLERY MILLER HELPER.[email or web address] Spontaneous unlabored Yes 09/22/24 13:02 DISTILLERY MILLER HELPER.CHRISTOPH respirations Mental status Awake,Calm 09/22/24 13:02 DISTILLERY MILLER HELPER.SKOBNorma nausea No 09/22/24 13:02 DISTILLERY MILLER HELPER.KUSHALOBNorma Vomiting No 09/22/24 13:02 DISTILLERY MILLER HELPER.KUSHALOBNorma Anesthesia Postop Eval I: Fluid Summary Crystalloid volume administer 1,300 09/22/24 13:02 DISTILLERY MILLER HELPER.SKOBY (ml) Colloids volume administered ( ml) Blood Product volume administered (ml) Total IV fluid infused 1,300 09/22/24 13:02 DISTILLERY MILLER HELPER.KUSHALOBNorma Anesthesia Postop Eval I: Summary Notes Anesthesia Complication No 09/22/24 13:02 DISTILLERY MILLER HELPER.CHRISTOPH Anesthesia Complication Comment: Post-operative progress note Anesthesia: Postop Eval II Evaluation Mental status: Awake Pain Level: 0 nausea: No Vomiting: No Complications Anesthesia Complication: No
--- NOTE | 2024-09-22 14:05 | PCM.POSTANE2 ---
Anesthesia Postop Eval I Sum Postop Eval Completion status Anesthesia document: Postop Eval 1 completed: Yes Anesthesia Postop Eval I Summary Anesthesia Postop Eval I Summary: Anesthesia Postop Eval I: Assessment Summary Airway patent Yes 09/22/24 13:02 DOUGH MACHINE OPERATOR.SKOBY Spontaneous unlabored Yes 09/22/24 13:02 DOUGH MACHINE OPERATOR.CHRISTOPH respirations Mental status Awake,Calm 09/22/24 13:02 DOUGH MACHINE OPERATOR.SKOBNorma nausea No 09/22/24 13:02 DOUGH MACHINE OPERATOR.KUSHALOBNorma Vomiting No 09/22/24 13:02 DOUGH MACHINE OPERATOR.KUSHALOBNorma Anesthesia Postop Eval I: Fluid Summary Crystalloid volume administer 1,300 09/22/24 13:02 DOUGH MACHINE OPERATOR.SKOBY (ml) Colloids volume administered ( ml) Blood Product volume administered (ml) Total IV fluid infused 1,300 09/22/24 13:02 DOUGH MACHINE OPERATOR.KUSHALOBNorma Anesthesia Postop Eval I: Summary Notes Anesthesia Complication No 09/22/24 13:02 DOUGH MACHINE OPERATOR.CHRISTOPH Anesthesia Complication Comment: Post-operative progress note Anesthesia: Postop Eval II Evaluation Mental status: Awake Pain Level: 0 nausea: No Vomiting: No Complications Anesthesia Complication: No
[2024-09-22] MEDS: Ketorolac 15 MG/ML Vial IM (14:36)
== END 2024-09-22 15:34 | disposition home or self-care (01) ==
LOC: SDC 09:58 → AC 09:59
PROVIDERS: Anesthesiology; PCP Nurse Practitioner Family; Referring Provider Urology; Visit Provider Urology
PROC: 0TJ98ZZ Inspection of Ureter, Via Natural or Artificial Opening Endoscopic (ICD-10-PCS; CPT 52352; principal; 2024-09-22 11:20)
DX: N20.1 Calculus of ureter (principal); R31.9 Hematuria, unspecified
CPT/HCPCS: 52356; 00873; 76000; 81025; 82360; 88300; C1769; J2405

== ENCOUNTER → 2024-09-25 | Outpatient (CLI) | payer OTHER, SELFPAY ==
--- NOTE | 2024-09-25 13:20 | CT_ITS ---
EXAM: CT Chest With Intravenous Contrast CLINICAL INDICATION: QUESTIONABLE 1.1 CM HILAR NODULE COMPARE TO MRI CHEST TECHNIQUE: Axial computed tomography images of the chest with intravenous contrast. This CT exam was performed using one or more of the following dose reduction techniques: automated exposure control, adjustment of the mA and/or kV according to patient size, and/or use of iterative reconstruction technique. COMPARISON: No relevant prior studies available. FINDINGS: LUNGS AND PLEURAL SPACES: Mild lung emphysema. No consolidation. No pneumothorax. No significant effusion. No suspicious pulmonary nodules. No mediastinal or perihilar lymphadenopathy. HEART: Unremarkable. No cardiomegaly. No significant pericardial effusion. No significant coronary artery calcifications. BONES/JOINTS: Unremarkable. No acute fracture. No dislocation. SOFT TISSUES: Unremarkable. VASCULATURE: Unremarkable. No thoracic aortic aneurysm. LYMPH NODES: See above. LIVER: Fatty liver. CT/Chest WITH Contrast IMPRESSION: No suspicious pulmonary nodules. No mediastinal or perihilar lymphadenopathy. Reading [facility]
== END | disposition home or self-care (01) ==
LOC: CT 13:16
PROVIDERS: PCP Nurse Practitioner Family; Referring Provider Nurse Practitioner Family; Visit Provider Nurse Practitioner Family
DX: R93.89 Abnormal findings on diagnostic imaging of other specified body structures (principal)
CPT/HCPCS: 71260; Q9967

== ENCOUNTER → 2024-10-04 | Outpatient (CLI) | payer OTHER, SELFPAY ==
--- NOTE | 2024-10-04 12:48 | RAD_ITS ---
PROCEDURE: ABDOMEN SINGLE VIEW 10/04/2024 REASON FOR EXAM: KUB- KIDNEY STONES TECHNIQUE: Single view abdomen. FINDINGS: A right double-J ureteral stent is present and appears within limits. No obvious calcification is seen along the course of the stent. A couple faint densities are seen in the region of the lower right renal shadow and hepatic flexure with considerations including possible intrarenal stones or bowel material. Bowel gas pattern appears within limits. Visualized osseous structures appear within limits. RAD/Abdomen Single View IMPRESSION: A right double-J ureteral stent is present and appears within limits. No obvio us calcification is seen along the course of the stent. Reading Location: [id number]
== END | disposition home or self-care (01) ==
LOC: MTRAD 12:45
PROVIDERS: PCP Nurse Practitioner Family; Referring Provider Urology; Visit Provider Urology
DX: N20.0 Calculus of kidney (principal)
CPT/HCPCS: 74018

== ENCOUNTER → 2025-04-27 | Outpatient (CLI) | payer OTHER, SELFPAY ==
--- NOTE | 2025-04-27 09:08 | RAD_ITS ---
EXAM: XR Abdomen, 1 View CLINICAL INDICATION: KIDNEY STONE TECHNIQUE: Frontal supine view of the abdomen/pelvis. COMPARISON: No relevant prior studies available. FINDINGS: GASTROINTESTINAL TRACT: Fecal retention in the colon consistent with constipation. No dilation. BONES/JOINTS: Unremarkable. No acute fracture. RAD/Abdomen Single View IMPRESSION: Fecal retention in the colon consistent with constipation. Reading Location: [id number]
== END | disposition home or self-care (01) ==
LOC: MTRAD 09:05
PROVIDERS: PCP Nurse Practitioner Family; Referring Provider Urology; Visit Provider Urology
DX: N20.0 Calculus of kidney (principal)
CPT/HCPCS: 74018